=== PATIENT | male | born 1985 | race African-American/Black ===

== ENCOUNTER 2016-12-24 02:25 | Emergency (ER) | payer OTHER ==
--- NOTE | 2016-12-24 03:15 | ER Document Report ---
ED Psych Disorder / Suicide <SUE,PATTIEMILEE - Last Filed: 12/24/16 12:23> - General Mode of Arrival: Ambulatory Information source: Patient TRAVEL OUTSIDE OF THE [place] IN LAST 30 DAYS: No - HPI Patient complains to provider of: Other - He had an argument with his girlfriend who told him that he was worthless. States has had thoughts of suicide for a long time and tonight he just thought about running his car into another car but instead came to the emergency room Onset: Other - States for a long time Quality of pain: No pain Severity: None Pain Level: Denies Suicide Risk Factors: Depressed, Male, No spouse Situational problems related to: Other - Girlfriend Suicide Attempt Method: Motor Vehicle - Thoughts of running his car into another car but did not Normal mood: No Associated symptoms: Depressed, Flat affect Similar symptoms previously: Yes Recently seen / treated by doctor: No <HERNANDO NESBITT - Last Filed: 12/24/16 19:00> - General Chief Complaint: Psych Problem Stated Complaint: SUICIDIAL IDEATION Time Seen by Provider: 12/24/16 02:59 Notes: 31-year-old presents to ED for anxiety and depression. He states he felt suicidal for a long while. Tonight he had an argument with his girlfriend and she told him that he was used. He states he left his girlfriend's house and was driving around calling different friends from the [employer]. He states he thought about driving his car into another person but 1 of his friends answered him so he talked with them for a while and they told him to come to the emergency room to get checked out so he did. Patient states she has been having thoughts of suicide off and on for years. States he was discharged on the medically for PTSD and back pain and some other things he is not sure. ( HERNANDO NESBITT) - Related Data Allergies/Adverse Reactions: No Known Allergies Allergy (Unverified 07/29/15 15:16) Past Medical History - General Information source: Patient - Social History Smoking Status: Current Some Day Smoker Cigarette use (# per day): Yes - Sometimes Chew tobacco use (# tins/day): No Smoking Education Provided: Yes - Less than 2 minutes Frequency of alcohol use: Rare Drug Abuse: Marijuana Lives with: Spouse/Significant other Family History: Reviewed & Not Pertinent Patient has suicidal ideation: Yes Patient has homicidal ideation: No - Past Medical History Cardiac Medical History: Reports: None Pulmonary Medical History: Reports: Hx Asthma, Hx Bronchitis EENT Medical History: Reports: None Neurological Medical History: Reports: None Endocrine Medical History: Reports: None Renal/ Medical History: Reports: None Malignancy Medical History: Reports None GI Medical History: Reports: None Musculoskeltal Medical History: Reports Hx Arthritis, Reports Hx Musculoskeletal Deformity, Reports Hx Musculoskeletal Trauma Skin Medical History: Reports None Psychiatric Medical History: Reports: Hx Depression, Hx Post Traumatic Stress Disorder Traumatic Medical History: Reports: None Infectious Medical History: Reports: None Past Surgical History: Reports: Hx Orthopedic Surgery - Knee scope - Immunizations Immunizations up to date: Yes <HERNANDO NESBITT - Last Filed: 12/24/16 19:00> Review of Systems - Review of Systems Constitutional: No symptoms reported EENT: No symptoms reported Cardiovascular: No symptoms reported Respiratory: No symptoms reported Gastrointestinal: No symptoms reported Genitourinary: No symptoms reported Male Genitourinary: No symptoms reported Musculoskeletal: No symptoms reported Skin: No symptoms reported Hematologic/Lymphatic: No symptoms reported Neurological/Psychological: Depression, Suicidal ideation -: Yes All other systems reviewed and negative <HERNANDO NESBITT - Last Filed: 12/24/16 19:00> Physical Exam - Vital signs Interpretation: Hypertensive - 127/86. No: Tachycardic - 69 - General General appearance: Appears well, Alert - HEENT Head: Normocephalic, Atraumatic Eyes: Normal Pupils: PERRL - Respiratory Respiratory status: No respiratory distress Chest status: Nontender Breath sounds: Normal Chest palpation: Normal - Cardiovascular Rhythm: Regular Heart sounds: Normal auscultation Murmur: No - Abdominal Inspection: Normal Distension: No distension Bowel sounds: Normal Tenderness: Nontender Organomegaly: No organomegaly - Back Back: Normal, Nontender - Extremities General upper extremity: Normal inspection, Nontender, Normal color, Normal ROM , Normal temperature General lower extremity: Normal inspection, Nontender, Normal color, Normal ROM , Normal temperature, Normal weight bearing. No: Xochilt's sign - Neurological Neuro grossly intact: Yes Cognition: Normal Orientation: AAOx4 Aly Coma Scale Eye Opening: Spontaneous [place] Coma Scale Verbal: Oriented [place] Coma Scale Motor: Obeys Commands [place] Coma Scale Total: 15 Speech: Normal Motor strength normal: LUE, RUE, LLE, RLE Sensory: Normal - Psychological Associated symptoms: Depressed, Flat affect - Skin Skin Temperature: Warm Skin Moisture: Dry Skin Color: Normal <HERNANDO NESBITT - Last Filed: 12/24/16 19:00> - Vital signs Vitals: Temp Pulse Resp BP Pulse Ox 97.7 F 125 H 18 144/102 H 99 12/24/16 02:36 12/24/16 02:36 12/24/16 02:36 12/24/16 02:36 12/24/16 02:36 Course - Laboratory Result Diagrams: 12/24/16 02:40 12/24/16 02:40 <GOPI CHAN - Last Filed: 12/24/16 12:23> - Laboratory Result Diagrams: 12/24/16 02:40 12/24/16 02:40 <HERNANDO NESBITT - Last Filed: 12/24/16 19:00> - Re-evaluation Re-evalutation: 12/24/16 07:20 bedside report and handoff received from Dong Leal NP. Pt denies any needs at present and agrees to wait for mental health evaluation. 12/24/16 10:00 spoke with Gloria with the mental health team, who is aware of pt's presentation, although has yet to evaluate pt. 12/24/16 12:07 Pt resting quietly in room, denies needs at present. Gloria is attempting to make contact with pt's significant other to coffee roaster helper in disposition decision making. 12/24/16 12:[address] Horton, who has already evaluated pt. Pt sleeping at present. (GOPI CHAN) 12/24/16 07:36 Report given to Gopi Chan IN FLIGHT TECHNICIAN patient continues to rest comfortably. He states he will speak with mental health when they come in this morning. He states he has no plan to leave before speaking to mental health. (HERNANDO NESBITT) - Vital Signs Vital signs: Temp Pulse Resp BP Pulse Ox 97.9 F 92 18 115/70 100 12/24/16 13:20 12/24/16 18:25 12/24/16 18:25 12/24/16 18:25 12/24/16 18:25 - Laboratory Laboratory results interpreted by me: 12/24/16 12/24/16 02:40 02:40 Seg Neutrophils % 35.7 L Eosinophils % 13.6 H Absolute Eosinophils 1.2 H Salicylates < 1.0 L Acetaminophen < 10 L Discharge <GOPI CHAN - Last Filed: 12/24/16 12:23> <HERNANDO NESBITT - Last Filed: 12/24/16 19:00> - Discharge Clinical Impression: Suicidal ideation Disposition: PSYCH HOSP/UNIT
[2016-12-24 03:20] LABS: ALANINE AMINOTRANSFERASE 40 U/L (21-72); ALBUMIN 4.9 g/dL (3.5-5.0); ALCOHOL 109 mg/dL (NONE DETECTED); ALKALINE PHOSPHATASE 63 U/L (38-126); ANION GAP 13 (5-19); ASPARTATE AMINO TRANSFERASE 35 U/L (17-59); BILIRUBIN,DIRECT 0.3 mg/dL (0.0-0.4); BILIRUBIN,TOTAL 0.4 mg/dL (0.2-1.3); BLOOD UREA NITROGEN 13 mg/dL (7-20); CALCIUM 10.1 mg/dL (8.4-10.2); CARBON DIOXIDE 24 mmol/L (22-30); CHLORIDE 106 mmol/L (98-107); CREATININE RESULT 0.96 mg/dL (0.52-1.25); GLUCOSE 77 mg/dL (75-110); POTASSIUM 4.2 mmol/L (3.6-5.0); SODIUM 143.2 mmol/L (137-145)
[2016-12-24 03:26] LABS: ABSOLUTE BASOPHILS # (AUTO) 0.1 10^3/uL (0.0-0.2); ABSOLUTE EOSINOPHILS # (AUTO) 1.2 10^3/uL (0.0-0.6); ABSOLUTE LYMPHOCYTES (AUTO) 3.6 10^3/uL (0.5-4.7); ABSOLUTE MONOCYTES (AUTO) 0.8 10^3/uL (0.1-1.4); ABSOLUTE NEUT (AUTO) 3.2 10^3/uL (1.7-8.2); BASOPHILS % (AUTO) 0.9 % (0-2); EOSINOPHILS % (AUTO) 13.6 % (0-6); HEMATOCRIT 44.4 % (37.9-51.0); HEMOGLOBIN 14.9 g/dL (13.5-17.0); HGB HCT DIFFERENCE 0.3; MEAN CORPUSCULAR HEMOGLOBIN 27.7 pg (27.0-33.4); MEAN CORPUSCULAR HGB CONC 33.5 g/dL (32.0-36.0); MEAN CORPUSCULAR VOLUME 83 fl (80-97); MONOCYTES % (AUTO) 8.8 % (3-13); RED BLOOD COUNT 5.37 10^6/uL (4.35-5.55); RED CELL DISTRIBUTION WIDTH 12.4 % (11.5-14.0); SEGMENTED NEUTROPHILS % (AUTO) 35.7 % (42-78); WHITE BLOOD COUNT 8.8 10^3/uL (4.0-10.5)
[2016-12-24 03:38] LABS: APPEARANCE,URINE CLEAR; BILIRUBIN,URINE NEGATIVE (NEGATIVE); GLUCOSE, URINE NEGATIVE (NEGATIVE); KETONES,URINE NEGATIVE (NEGATIVE); LEUKOCYTE ESTERASE,URINE NEGATIVE (NEGATIVE); NITRITE,URINE NEGATIVE (NEGATIVE); PROTEIN,URINE NEGATIVE (NEGATIVE); URINE SPECIFIC GRAVITY 1.001; UROBILINOGEN,URINE NEGATIVE mg/dL (<2.0)
[2016-12-24 03:59] LABS: URINE BARBITURATES SCREEN NEGATIVE; URINE METHADONE SCREEN NEGATIVE; URINE OPIATES LOW NEGATIVE; URINE PHENCYCLIDINE SCREEN NEGATIVE
--- NOTE | 2016-12-24 11:13 | EKG REPORT ---
SEVERITY:- ABNORMAL ECG - SINUS RHYTHM MULTIPLE VENTRICULAR PREMATURE COMPLEXES : Confirmed by: Sameera Park MD 24-Dec-2016 11:13:02
--- NOTE | 2016-12-24 12:40 | ER Document Report ---
Doctor's Note Notes: 12/24/16 12:39 Patient resting comfortably on stretcher, chart was reviewed as well as vital signs and labs, patient reports he is not feeling much different from last night , he is depressed appearing with a flat affect, patient has been evaluated by mental health team who are in agreement that patient should remain in the emergency room for further evaluation and treatment at this point in time to maintain his safety
--- NOTE | 2016-12-24 13:42 | ER Document Report ---
ED Psych Disorder / Suicide - General Mode of Arrival: Ambulatory Information source: Patient, [facility] Records TRAVEL OUTSIDE OF THE [place] IN LAST 30 DAYS: No - HPI Patient complains to provider of: Suicidal ideation, Suicidal plan - considered driving his car into another person Onset: Just prior to arrival Onset was: Sudden Suicide Risk Factors: Depressed, Lack of social support, Male, No spouse, Substance abuse - ETOH, Other mental health dx. - PTSD, Other - break up with gf Situational problems related to: Significant other Normal mood: Yes Associated symptoms: Normal affect, Normal mood, Depressed - per patient Similar symptoms previously: Yes - pt reports SI for multiple years Recently seen / treated by doctor: No <CARLITOS ORTIZ - Last Filed: 12/24/16 13:41> <GERALD LOPEZ - Last Filed: 12/25/16 11:27> - General Chief Complaint: Psych Problem Stated Complaint: SUICIDIAL IDEATION Time Seen by Provider: 12/24/16 02:59 - HPI Notes: Patient is a 31 year old male who presented overnight with c/o SI, with possible plan to drive into another person. Patient reported upon arrival that his girlfriend and he broke up, and he began experiencing SI, which he acknowledged he had experienced on and off for years. Patient this morning states if he could , he would. Patient states he is diagnosed with PTSD due to combat related experiences from multiple deployments in [place], etc. Patient states his anxiety and what he describes as overwhelming sadness prevents him from engaging in daily or enjoyable activities in the community or just away from home. Patient states he has felt like this for years, even before he retired from the [employer]. Patient reports prior to fdc, he did seek help from the and was prescribed medications, and was held at their hospital for about a week. Patient states this was due to his buddies finding him with a knife and he endorsed wanting to slit his throat. Patient states it was helpful to be monitored while starting medications. He states Depakote helped his mood, but made him gain 45 lbs in 2 months. Patient states he moved to [place] Jun 2015 and eventually ran out of medications. [facility] and despite him protesting, he was started on Zoloft which he states increased his anxiety and irritability. Patient states he struggles with sleep due to racing thoughts, and nightmares. Patient states that he has known for a while that he needed help for his depression and PTSD, but wanted to wait until summer was over and his daughter went back to [place]. Patient states that he occasionally drinks alcohol, and that the alcohol in his system last night was not a contributing factor. He states it was just enough to calm himself down and take the time to call friends to talk about his problem. He states he felt hopeless, like the only support person he had here, has abandoned him (govind). Shanika YUAN states: not available, mailbox is full and cannot accept messages at this time. Called again, successfully left ms! 1342. Patient is A&O. Mood is depressed per patient, although he is engaging, smiling , etc. Patient endorses suicidal ideations, but denies intent. Patient states he does have firearms in his home with access. Patient denies homicidal ideations, intent, plan, or means. Patient denies A/V H; delusions not noted. Thought processes were organized. Conversational speech was WNL. Intellectual abilities were estimated within average range. Attention and focus were fair. Insight, judgment, and impulse control were poor. PTSD, per history (CARLITOS ORTIZ) Patient was accepted to [facility] and transportation occurred. (GERALD LOPEZ) - Related Data Allergies/Adverse Reactions: No Known Allergies Allergy (Unverified 07/29/15 15:16) Past Medical History - General Information source: Patient - Social History Smoking Status: Current Some Day Smoker Cigarette use (# per day): Yes - Sometimes Chew tobacco use (# tins/day): No Frequency of alcohol use: Rare Drug Abuse: Marijuana Lives with: Spouse/Significant other Family History: Reviewed & Not Pertinent Patient has suicidal ideation: Yes Patient has homicidal ideation: No - Past Medical History Cardiac Medical History: Reports: None Pulmonary Medical History: Reports: Hx Asthma, Hx Bronchitis EENT Medical History: Reports: None Neurological Medical History: Reports: None Endocrine Medical History: Reports: None Renal/ Medical History: Reports: None. Denies: Hx Peritoneal Dialysis Malignancy Medical History: Reports None GI Medical History: Reports: None Musculoskeltal Medical History: Reports Hx Arthritis, Reports Hx Musculoskeletal Deformity, Reports Hx Musculoskeletal Trauma Skin Medical History: Reports None Psychiatric Medical History: Reports: Hx Bipolar Disorder - depression, Hx Depression - anxiety, PTSD, Hx Post Traumatic Stress Disorder Traumatic Medical History: Reports: None Infectious Medical History: Reports: None Past Surgical History: Reports: Hx Orthopedic Surgery - Knee scope - Immunizations Immunizations up to date: Yes <CARLITOS ORTIZ - Last Filed: 12/24/16 13:41> Course - Laboratory Result Diagrams: 12/24/16 02:40 12/24/16 02:40 <CARLITOS ORTIZ - Last Filed: 12/24/16 13:41> - Laboratory Result Diagrams: 12/24/16 02:40 12/24/16 02:40 <GERALD LOPEZ - Last Filed: 12/25/16 11:27> - Vital Signs Vital signs: Temp Pulse Resp BP Pulse Ox 98.5 F 68 16 123/93 H 98 12/25/16 08:52 12/25/16 08:52 12/25/16 08:52 12/25/16 08:52 12/25/16 08:52 - Laboratory Laboratory results interpreted by me: 12/24/16 12/24/16 02:40 02:40 Seg Neutrophils % 35.7 L Eosinophils % 13.6 H Absolute Eosinophils 1.2 H Salicylates < 1.0 L Acetaminophen < 10 L Discharge <CARLITOS ORTIZ - Last Filed: 12/24/16 13:41> <GERALD LOPEZ - Last Filed: 12/25/16 11:27> - Discharge Clinical Impression: Suicidal ideation Disposition: PSYCH HOSP/UNIT
[2016-12-24] MEDS: LEVETIRACETAM 500 MG TABLET PO SCH (22:51)
[2016-12-25 09:15] VITALS: BP 123/93
[2016-12-25] MEDS: LEVETIRACETAM 500 MG TABLET PO SCH (09:51)
== END 2016-12-25 10:12 ==
LOC: ER 02:25
DX: R45.851 Suicidal ideations (principal); F41.8 Other specified anxiety disorders; F43.10 Post-traumatic stress disorder, unspecified; F17.200 Nicotine dependence, unspecified, uncomplicated
CPT/HCPCS: 36415; 80053; 80307; 81001; 85025; 93005; 93010; 99285

== ENCOUNTER → 2017-02-16 | Outpatient (CLI) | payer OTHER ==
[2017-02-16 08:48] LABS: ABSOLUTE BASOPHILS # (AUTO) 0.1 10^3/uL (0.0-0.2); ABSOLUTE EOSINOPHILS # (AUTO) 1.7 10^3/uL (0.0-0.6); ABSOLUTE LYMPHOCYTES (AUTO) 1.8 10^3/uL (0.5-4.7); ABSOLUTE MONOCYTES (AUTO) 0.7 10^3/uL (0.1-1.4); ABSOLUTE NEUT (AUTO) 2.8 10^3/uL (1.7-8.2); EOSINOPHILS % (AUTO) 23.9 % (0-6); HEMOGLOBIN 14.9 g/dL (13.5-17.0); HGB HCT DIFFERENCE 1.7; LYMPHOCYTES % (AUTO) 25.8 % (13-45); MEAN CORPUSCULAR HEMOGLOBIN 28.3 pg (27.0-33.4); MEAN CORPUSCULAR HGB CONC 34.7 g/dL (32.0-36.0); MEAN CORPUSCULAR VOLUME 81 fl (80-97); MONOCYTES % (AUTO) 9.4 % (3-13); RED BLOOD COUNT 5.29 10^6/uL (4.35-5.55); RED CELL DISTRIBUTION WIDTH 13.2 % (11.5-14.0); SEGMENTED NEUTROPHILS % (AUTO) 39.9 % (42-78); WHITE BLOOD COUNT 7.1 10^3/uL (4.0-10.5)
[2017-02-16 09:13] LABS: ALANINE AMINOTRANSFERASE 44 U/L (21-72); ALBUMIN 4.9 g/dL (3.5-5.0); ALKALINE PHOSPHATASE 67 U/L (38-126); ANION GAP 11 (5-19); ASPARTATE AMINO TRANSFERASE 36 U/L (17-59); BILIRUBIN,DIRECT 0.3 mg/dL (0.0-0.4); BILIRUBIN,TOTAL 0.5 mg/dL (0.2-1.3); BLOOD UREA NITROGEN 16 mg/dL (7-20); CARBON DIOXIDE 29 mmol/L (22-30); CHLORIDE 102 mmol/L (98-107); CREATININE RESULT 1.07 mg/dL (0.52-1.25); GLUCOSE 82 mg/dL (75-110); POTASSIUM 4.3 mmol/L (3.6-5.0); SODIUM 142.4 mmol/L (137-145); TOTAL PROTEIN 7.8 g/dL (6.3-8.2)
== END ==
LOC: OD 08:10
PROVIDERS: ATTEND Nurse Practitioner Psychiatric/Mental Health
DX: F31.9 Bipolar disorder, unspecified (principal); Z79.899 Other long term (current) drug therapy
CPT/HCPCS: 36415; 80053; 80156; 84443; 85025